=== PATIENT | female | born 1940 | race Caucasian/White ===

== ENCOUNTER → 2022-07-24 13:26 | Outpatient (CLI) | payer MEDICARE, BC, SELFPAY ==
--- NOTE | 2022-07-24 13:32 | DI.MRI.S_ITS ---
PROCEDURE: MR LUMBAR SPINE WO CON INDICATIONS: Spondylolisthesis, lumbar region TECHNIQUE: Noncontrast sagittal T1 spin echo and T2 fast echo, sagittal STIR, and T2 fast spin echo through the lumbar spine. In cases with scoliosis, additional coronal T2 fast spin echo may be performed. COMPARISON: None. FINDINGS: Image quality: Excellent. Alignment and Curvature: Convex left thoracolumbar scoliosis Bone Marrow: Multilevel degenerative endplate changes. Mild Modic type 1 endplate changes at L2-3 and L3-4. Discectomy and fusion with posterior ruslan and screw instrumentation present at L4-5 and L5-S1 Spinal Cord: Conus medullaris terminates at the L1 level. Visualized cord demonstrates normal signal and size. Paraspinous Soft Tissues: No paravertebral masses. T12-L1: Disc height is maintained. No central or foraminal stenosis L1-L2: Disc height loss present. Mild circumferential disc bulge without central stenosis. Mild bilateral foraminal stenosis L2-L3: Disc space narrowing and circumferential disc bulge hypertrophic facet joints results in mild central stenosis. Moderate right and severe left foraminal stenosis L3-L4: Disc space narrowing with circumferential disc bulge and hypertrophic facet joints results in moderate central stenosis. Mild right and severe left foraminal stenosis. L4-L5: Discectomy and fusion. Mild central stenosis. Moderate right and left foraminal stenosis L5-S1: Discectomy and fusion. No central stenosis present. Moderate bilateral foraminal stenosis IMPRESSION: Multilevel degenerative disc disease and arthropathy results in varying degrees of central and foraminal stenosis including moderate central and severe foraminal stenosis at L3-4 Instrumented discectomy and fusion L4-5 and L5-S1 Approved by: Sergio Avery M.D. on 07/25/2022 at 12:07
== END ==
PROVIDERS: Family Provider Family Medicine Geriatric Medicine; PCP Family Medicine Geriatric Medicine; Referring Provider Orthopaedic Surgery Orthopaedic Surgery of the Spine; Visit Provider Orthopaedic Surgery Orthopaedic Surgery of the Spine
DX: M51.36 Other intervertebral disc degeneration, lumbar region (principal); M47.816 Spondylosis without myelopathy or radiculopathy, lumbar region; M48.061 Spinal stenosis, lumbar region without neurogenic claudication; M43.16 Spondylolisthesis, lumbar region; M41.9 Scoliosis, unspecified; Z98.1 Arthrodesis status
CPT/HCPCS: 72148

== ENCOUNTER → 2024-06-29 12:32 | Outpatient (CLI) | payer MEDICARE, BC, SELFPAY ==
--- NOTE | 2024-06-29 12:34 | DI.RAD.S_ITS ---
PROCEDURE: XR LUMBAR SPINE MIN 4V INDICATIONS: BACK PAIN TECHNIQUE: 5 views of the lumbar spine were acquired, including bilateral oblique views. COMPARISON: [facility], , L-SPINE 2-3 VIEWS, 11/22/2016, 14:07. FINDINGS: Diffuse osseous demineralization. Five non rib-bearing lumbar vertebrae are present. Status post L4-S1 posterior fusion with intervertebral disc spacer placement at L4-L5 and L5-S1. No hardware complication. Mild dextrocurvature of the lumbar spine with the apex at L3 and developing pseudoarthrosis across the fused levels. Aortic vascular calcifications. Partially identified right hip total arthroplasty. IMPRESSION: Status post L4-S1 posterior fusion without hardware complication. Dictated by: Segundo Caruso M.D. on 06/29/2024 at 12:57 Approved by: Segundo Caruso M.D. on 06/29/2024 at 13:00
== END ==
PROVIDERS: Family Provider Family Medicine Geriatric Medicine; PCP Family Medicine Geriatric Medicine; Referring Provider Physical Medicine & Rehabilitation; Visit Provider Physical Medicine & Rehabilitation
DX: M48.062 Spinal stenosis, lumbar region with neurogenic claudication (principal); M41.26 Other idiopathic scoliosis, lumbar region; M47.20 Other spondylosis with radiculopathy, site unspecified; Z98.1 Arthrodesis status; Z96.641 Presence of right artificial hip joint
CPT/HCPCS: 72110; 99214

== ENCOUNTER 2024-07-30 12:33 | Outpatient (CLI) | payer MEDICARE, BC, SELFPAY ==
[2024-07-30] VITALS (10 sets, daily range): BP systolic 127–160; BP diastolic 61–81; PULSE 84–97; RESP 8–19; TEMP 36.4; O2SAT 98–100
--- NOTE | 2024-07-30 12:36 | DI.RAD.S_ITS ---
PROCEDURE: PAIN L INTERLAMINAR/CAUDAL INJ INDICATIONS: L3/4 TL [place] COMPARISON: None. FINDINGS/IMPRESSION: Fluoroscopic spot filming was performed to verify placement of spinal needles at the left L3-L4 level(s), as labeled on the films. Appropriate location(s) of the needle tip(s) was confirmed by injection of iodinated contrast. Dictated by: Segundo Caruso M.D. on 07/30/2024 at 15:33 Approved by: Segundo Caruso M.D. on 07/30/2024 at 15:33
[2024-07-30] MEDS: MIDAZOLAM 2 MG/2 ML VIAL 1 MG IV ×2 (13:50→13:56)
[2024-07-30] MEDS: DEXAMETHASONE 10 MG/ML VIAL INJ (13:54)
[2024-07-30] MEDS: BUPIVACAINE 0.25% (PF) VIAL 2 ML INJ (13:54)
[2024-07-30] MEDS: iopamidoL 15 ML VIAL 3 ML INJ (13:55)
[2024-07-30] MEDS: BETAMETHASONE 30 MG/5 ML MDV 12 MG INJ (13:55)
--- NOTE | 2024-07-30 14:11 | P.PCN_ITS ---
Date/Time/Diagnoses Date of procedure: 07/30/24 Time of procedure: 14:11 Pre-procedure diagnosis: 1. HNP WITH RADICULAR FEATURES, 2. MULTILEVEL CENTRAL STENOSIS, Post-procedure diagnosis: same Procedure Notes Procedure: 1. FLUOROSCOPICALLY GUIDED CONTRAST CONTROLLED INTERLAMINAR EPIDURAL STEROID INJECTION - L3/4 Indications: Ting is referred by Dr. Noriega for treatment of Bilateral Foraminal Stenosis L>R LE symptoms. Physician: Leonel Blackmon Total Fluoroscopy time (seconds): 14 Total sedation minutes: 14 Complications: none Procedure in detail & Post-procedure care: FINDINGS Multilevel Central Spinal Stenosis with Nerve Root Compression DESCRIPTION OF PROCEDURE Fluoroscopically guided, contrast-controlled L3/4 translaminar epidural steroid injection. Following review of allergy and review of potential side effects and complications, including, but not necessarily limited to, infection, allergic reaction, local tissue breakdown, temporary as well as permanent nerve injury, paralysis, stroke and possible , the patient indicated that the patient understood and agreed to proceed. An informed consent document was signed by the patient, witnessed by a nurse, and placed in the patient's chart. Additionally, other treatment options including modalities, medications, and physical therapy were reviewed with the patient. After review of previous anaesthesic history and IV conscious sedation the patient was deemed safe to proceed with today?s procedure with IV conscious sedation as ASA class II designation. Safety time-out was performed to confirm p atient ID, procedure to be performed and site of procedure. IV sedation was accomplished with a combination of 2mg of Versed was administered by the RN after DO order, titrated to patient comfort during the course of the procedure while the patient remained responsive to all verbal commands. In the prone position, following sterile prep and drape of the lumbar region, the L3/4 translaminar space was identified fluoroscopically. The skin was anesthetized via a 25-gauge, 1.5-inch needle with 1% lidocaine solution. At this point, a 22-gauge short bevel spinal needle was atraumatically introduced and advanced under fluoroscopic guidance into the region of the L3/4 translaminar space. Depth was confirmed on lateral view. Radiological data, including multiple fluoroscopic views of the lumbar spine, reveal a spinal needle at the L3/4 translaminar space. Lateral views then show placement of the needle in the epidural space. Subsequent views show contrast material flowing superiorly and inferiorly in the epidural space. No vascular or intrathecal uptake is observed. At this point, using loss of resistance technique with saline and air, the epidural space was entered. This was confirmed following negative aspiration with injection of approximately 1.5 cc of Isovue 200, showing excellent epidural flow without vascular or intrathecal uptake. At this point, 1cc of 1% lidocaine solution combined with 2cc or 10mg of dexamethasone and 6mg of betamethasone was injected without incident. The patient tolerated the procedure well without signs or symptoms of complications prior to transfer to the recovery area continued monitoring without incident. The patient was then transferred to the recovery area where they were observed for an appropriate period of time after the injection. The patient reported a VAS score of 6 prior to the procedure and a post- procedure VAS of 0. POST OP INSTRUCTIONS The patient was provided a Pain Log to continue to record their response to the target-specific procedure prior to follow-up visit with their referring physician. Additionally, specific post-injection care instructions and a contact number to our office were provided if concerns arise regarding possible complications associated with the procedure are suspected.
== END 2024-07-30 15:22 | disposition home or self-care (01) ==
LOC: RAD 12:34
PROVIDERS: Family Provider Family Medicine Geriatric Medicine; PCP Family Medicine; Referring Provider Physical Medicine & Rehabilitation; Visit Provider Physical Medicine & Rehabilitation
DX: M51.16 Intervertebral disc disorders with radiculopathy, lumbar region (principal); M48.061 Spinal stenosis, lumbar region without neurogenic claudication
CPT/HCPCS: 62323; 99152; J0702; J1100; J2250; J3490